=== PATIENT | male | born 1995 | race Caucasian/White ===

== ENCOUNTER 2018-07-20 12:38 | Emergency (ER) | payer OTHER ==
[~2018-07-20] VITALS: Ht 177.8 cm; Wt 72.6 kg
[2018-07-20 12:55] VITALS: BP 139/91
--- NOTE | 2018-07-20 13:55 | RAD ---
Three-view left wrist study Clinical indications: Left wrist pain. Fracture one year ago. FINDINGS: No acute fracture or lytic process is seen. Surgical pin is seen extending longitudinally through the scaphoid bone. No radiolucent fracture line is seen here. Radial carpal articulation is well aligned. Dorsal subluxation of the distal ulna with respect to the distal radius is seen in the lateral view. This may be developmental in nature or related to previous trauma. IMPRESSION: Healed scaphoid fracture. Electronically signed by: Alvaro Alvarez MD (07/20/2018 1:52 PM) [id number]
--- NOTE | 2018-07-20 14:17 | PHYS DOC ---
Past Medical History Past Medical History: No Pertinent History Past Surgical History: Other Additional Past Surgical Histo: TUBES/ADNOIDS, LEFT WRIST FX REPAIR Alcohol Use: Occasionally Drug Use: None Adult General Chief Complaint Chief Complaint: WRIST PAIN HPI HPI Patient is a 22 year old male who presents to the ED today complaining of 5 out of 10 left scaphoid pain that has been going on for 2 weeks. Patient denies any new injuries. He states 2 years ago he fractured his scaphoid surgery to fix it. He describes the pain as soreness worse on range of motion. Denies anything specifically relieving the pain. Review of Systems Review of Systems Constitutional: Denies fever or chills [] Musculoskeletal: Reports left wrist pain Integument: Denies rash or skin lesions [] Neurologic: Denies headache, focal weakness or sensory changes [] All other systems were reviewed and found to be within normal limits, except as documented in this note. Physical Exam Physical Exam Constitutional: Well developed, well nourished, no acute distress, non-toxic appearance. [] Skin: Warm, dry, no erythema, no rash. [] Back: No tenderness, no CVA tenderness. [] Extremities: Left wrist with old healed surgical incision noted of the scaphoid. Tenderness on the left wrist scaphoid bone. Patient stated this tenderness is chronic since injury 2 weeks ago. Full range of motion to the left wrist and fingers. Adequate radial, medial, ulnar sensation to the left hand. +2 left radial pulse. Cap refill less than 2 seconds the left fingers. Neurologic: Alert and oriented X 3, normal motor function, normal sensory function, no focal deficits noted. [] Psychologic: Affect normal, judgement normal, mood normal. [] Current Patient Data Vital Signs Vital Signs Date Time Temp Pulse Resp B/P (MAP) Pulse Ox O2 Delivery O2 Flow Rate FiO2 07/20/18 12:55 97.9 96 20 139/91 (107) 99 Room Air 97.9 EKG EKG [] Radiology/Procedures Radiology/Procedures []PROCEDURE: WRIST 3V LEFT Three-view left wrist study Clinical indications: Left wrist pain. Fracture one year ago. FINDINGS: No acute fracture or lytic process is seen. Surgical pin is seen extending longitudinally through the scaphoid bone. No radiolucent fracture line is seen here. Radial carpal articulation is well aligned. Dorsal subluxation of the distal ulna with respect to the distal radius is seen in the lateral view. This may be developmental in nature or related to previous trauma. IMPRESSION: Healed scaphoid fracture. Electronically signed by: Herbie Alvarez MD (07/20/2018 1:52 PM) [id number] DICTATED and SIGNED BY: HERBIE ALVAREZ MD DATE: 07/20/18 1352 Course & Med Decision Making Course & Med Decision Making Pertinent Labs and Imaging studies reviewed. (See chart for details) This is a 22-year-old male patient presenting to the ED today with left wrist pain, no known injury but had an injury 2 years ago with scaphoid fracture. X- rays of the left wrist were noted for healed scaphoid fracture. No acute findings. Patient was discharged to home. Ice elevation encouraged. Wrist splint provided by the ED RN, neurovascular exam is intact. Orthopedic follow-up as an outpatient. OTC pain relievers. Dragon Disclaimer Dragon Disclaimer This electronic medical record was generated, in whole or in part, using a voice recognition dictation system. Departure Departure Impression: Primary Impression: Wrist pain, acute Disposition: 01 HOME, SELF-CARE Condition: STABLE Referrals: UNKNOWN PCP NAME (PCP) JULI GARDNER II, MD follow up in 1 week Patient Instructions: Wrist Pain, [id number] Additional Instructions: You were evaluated in the emergency room for left wrist pain, your left wrist x- rays were negative for any acute findings, xray was noted for an old healed scaphoid fracture. Try to ice and elevate the extremity take [id number] medications as needed for pain. Follow-up with orthopedic doctor in 1-2 weeks. Problem Qualifiers Primary Impression: Wrist pain, acute Laterality: left Qualified Codes: M25.532 - Pain in left wrist MANNY SALAZAR MC KAY STITCHER July 20, 2018 14:16
== END 2018-07-20 14:19 | disposition home or self-care (01) ==
LOC: ER 12:38
DX: M25.532 Pain in left wrist (principal)
CPT/HCPCS: 29125; 73110; 99284